=== PATIENT | female | born 1980 | race American Indian/Alaskan Native ===

== ENCOUNTER 2019-01-05 18:29 | Emergency (ER) | payer MEDICAID ==
--- NOTE | 2019-01-05 19:12 | Emergency Department Report ---
Blank Doc - Documentation Documentation: Vaginal spotting 2 h [employer]. Has care. Had US done today. Mild abd pain. This initial assessment diagnostic orders/clinical plan/treatment (s) is/Are subject change based on patient's health status, clinical progression and re- assessment by fellow clinical providers in the ED. Further treatment and work-up at subsequent clinical providers discretion. Patient/guardians urged not to elope from s their condition may be serious if not clinically assessed and managed. Inital order include:
[2019-01-05 20:08] LABS: Bilirubin,Urine NEG (Negative); Blood,Urine NEG (Negative); Color,Urine Yellow (Yellow); Mucus,Urine 1+ /HPF; Urobilinogen,Urine < 2.0 mg/dL (<2.0)
--- NOTE | 2019-01-05 21:10 | Ultrasound Report ---
FINAL REPORT PROCEDURE: US OB > = 14 WEEKS FETUS TECHNIQUE: Real-time transabdominal sonography of the uterus, placenta, amniotic fluid, adnexa, and fetus was performed with image documentation. Measurements were obtained to determine age/size. M-mode Doppler was used to document heartbeat. CPT 06756 HISTORY: vaginal spotting COMPARISON: No prior studies are available for comparison. FINDINGS: ADDITIONAL GESTATION: None. GENERAL: IUP: Single living intrauterine . Position: Cephalic Placental position: Fundal with grade 0 maturity, without previa. Amniotic fluid volume: Amniotic fl uid index is 5.8 centimeters MATERNAL: Uterus: Within normal limits. Cervical length: 3.9 cm. Internal Os: Closed. FETUS: Heart rate and rhythm: 163 beats per minute, regular MEASUREMENTS: BPD: 3.6 centimeters corresponding to 17 weeks and 1 day HC: 13.8 centimeters corresponding to 17 weeks and 2 days AC: 11.2 centimeters corresponding to 17 weeks and 0 days FL: 2.3 centimeters corresponding to 16 weeks and 5 days Mean Gestational Age (composite criteria): 17 weeks and 0 days Ratio biometry: Normal. Estimated Weight: 6 ounces grams. Estimated Due Date (earliest scan): 06/15/2019 IMPRESSION: Single intrauterine gestation at 17 weeks and 0 days. Estimated due date: 06/15/2019. Amniotic fluid index is below the normal limit.
--- NOTE | 2019-01-05 22:33 | Emergency Department Report ---
ED HPI - General Chief complaint: Vaginal Bleeding Stated complaint: 4MOS /SPOTTING/CRAMPING Time Seen by Provider: 01/05/19 19:09 Source: patient Mode of arrival: Ambulatory Limitations: No Limitations - History of Present Illness Initial comments: 38-year-old female, 17 weeks presents to ED with vaginal spotting and lower abdominal cramping 1 day. Now resolved. MD Complaint: abdominal pain, vaginal bleeding (spotting) -: hour(s) (2) Location: pelvis Radiation: none Severity: mild Quality: cramping Consistency: now resolved Improves with: none Worsens with: none Associated symptoms: denies other symptoms Vaginal bleeding: light :: Yes Number of weeks : 17 - Related Data Allergies Allergy/AdvReac Type Severity Reaction Status Date / Time No Known Allergies Allergy Unverified 01/05/19 18:31 ED Review of Systems ROS: Stated complaint: 4MOS /SPOTTING/CRAMPING Other details as noted in HPI Comment: All other systems reviewed and negative Gastrointestinal: abdominal pain Genitourinary: other (reports spotting) ED Past Medical Hx - Past Medical History Hx Diabetes: Yes - Surgical History Past Surgical History?: No - Social History Smoking Status: Never Smoker Substance Use Type: None ED Physical Exam - General Limitations: No Limitations General appearance: alert, in no apparent distress - Head Head exam: Present: atraumatic, normocephalic - Eye Eye exam: Present: normal appearance - ENT ENT exam: Present: mucous membranes moist - Neck Neck exam: Present: normal inspection - Respiratory Respiratory exam: Present: normal lung sounds bilaterally. Absent: respiratory distress - Cardiovascular Cardiovascular Exam: Present: regular rate, normal rhythm - GI/Abdominal GI/Abdominal exam: Present: soft, distended. Absent: tenderness - Extremities Exam Extremities exam: Present: normal inspection - Neurological Exam Neurological exam: Present: alert, oriented X3 - Psychiatric Psychiatric exam: Present: normal affect, normal mood - Skin Skin exam: Present: warm, dry, intact, normal color ED Course Vital Signs 01/05/19 01/05/19 19:06 22:00 Temperature 98.5 F Pulse Rate 102 H 91 H Respiratory 18 16 Rate Blood Pressure 116/98 Blood Pressure 121/74 [Left] O2 Sat by Pulse 99 99 Oximetry ED Medical Decision Making - Radiology Data Radiology results: report reviewed, image reviewed - Medical Decision Making 38 year old female 17 weeks with threatened miscarriage. Ultrasound shows IUP with heart rate present. Patient states has appointment with her OB on Thursday, in 5 days. Patient given return precautions - Differential Diagnosis spontaneous AB, incomplete AB, threatened AB Critical care attestation.: If time is entered above; I have spent that time in minutes in the direct care of this critically ill patient, excluding procedure time. ED Disposition Clinical Impression: Threatened miscarriage, 17 weeks gestation of Disposition: TO HOME OR SELFCARE Is pt being admited?: No Condition: Stable Instructions: Threatened Miscarriage (ED) Referrals: ALINA GÓMEZ [Other] - 3-5 Days PRIMARY CARE, [Referring] - 3-5 Days Time of Disposition: 22:32
[2019-01-05 23:21] VITALS: BP 121/74
== END 2019-01-05 22:30 | disposition home or self-care (01) ==
LOC: ED 18:29
DX: O20.0 Threatened abortion (principal); O24.912 Unspecified diabetes mellitus in pregnancy, second trimester; Z3A.17 17 weeks gestation of pregnancy
CPT/HCPCS: 36415; 76805; 81001; 84702; 99284